=== PATIENT | male | born 1945 | race Caucasian/White ===

== ENCOUNTER → 2016-12-11 | Outpatient (CLI) | payer MEDICARE, BC | LOC: GMAB 10:37 | PROVIDERS: ATTEND Family Medicine | DX: I10 Essential (primary) hypertension (principal); E29.9 Testicular dysfunction, unspecified; Z12.5 Encounter for screening for malignant neoplasm of prostate | CPT/HCPCS: 84403; 84443; G0103 ==

== ENCOUNTER → 2016-12-18 | Outpatient (CLI) | payer MEDICARE, BC ==
--- NOTE | 2016-12-18 13:28 | RAD ---
EXAM DESCRIPTION: Hand,Right 3 Views CLINICAL HISTORY: PAIN COMPARISON: None. TECHNIQUE: Right hand 3 views FINDINGS: Degenerative changes are observed in the metacarpal phalangeal joint of the second digit. Mild distal interphalangeal joint arthritis is observed throughout the hand. Proximal interphalangeal joint arthritis is also observed in the third digit. Some degenerative changes are also observed in the proximal interphalangeal joint of the fifth digit. No fracturing is detected. IMPRESSION: Degenerative changes are observed. No fracturing is detected. Electronically signed by: Cesar Gomez MD 12/18/2016 1:26 PM CDT
== END | disposition home or self-care (01) ==
LOC: RAD 09:04
PROVIDERS: ATTEND Orthopaedic Surgery
DX: M79.641 Pain in right hand (principal)

== ENCOUNTER → 2017-05-08 | Outpatient (CLI) | payer MEDICARE, BC ==
--- NOTE | 2017-05-08 16:20 | US ---
PROCEDURE: Venous,Lower Extremity LT CLINICAL HISTORY and INDICATION: Left leg pain COMPARISON: None. TECHNIQUE: Mcgill scale imaging with duplex interrogation of the left lower extremity venous system was performed and multiple static images were obtained. FINDINGS: Utilizing compression and augmentation, there is no deep venous thrombus in the common femoral, superficial femoral or popliteal veins. The posterior tibial and deep peroneal veins are patent and compressible. . The greater saphenous vein at the saphenofemoral junction is patent and compressible. There is no visualization of any subcutaneous fluid collections. There is no visualization of any fluid collections in the left popliteal fossa. There is no evidence of reactive or pathological lymphadenopathy in the evaluated left lower extremity. IMPRESSION: No deep venous thrombosis of the left lower extremity. Location of Interpretation: [id number] Electronically signed by: Boone Brown MD 05/08/2017 4:19 PM [facility] Workstation: [id number]
== END ==
LOC: US 12:01
PROVIDERS: ATTEND Family Medicine
DX: M79.605 Pain in left leg (principal)

== ENCOUNTER 2018-02-09 14:42 | Emergency (ER) | payer MEDICARE, BC ==
[2018-02-09] MEDS ORDERED: ASPIRIN TABLET 325 MG TAB PO ONE (14:51)
[2018-02-09] MEDS ORDERED: TETANUS,DIPHTHERIA,PERTUSSIS 1 EA SYG IM ONE (14:57)
--- NOTE | 2018-02-09 15:24 | CT ---
PROCEDURE: Head HISTORY: head trauma Indication: Same as above Comparison: None Technique: CT of the head was done without intravenous contrast was done in the orthogonal planes. This exam was performed according to our departmental dose-optimization program, which includes automated exposure control, adjustment of the mA and/or KV according to the patient's size and/or use of iterative reconstruction technique. FINDINGS: There is no intracranial hemorrhage, midline shift mass effect or acute focal infarct. If clinical concern exists regarding an acute ischemic/vascular pathology being responsible for patient's symptomatology, an MRI of the brain is more sensitive than the current study, in ruling out such a possibility. There is good villanueva/white matter differentiation. The ventricular system is normal. The mastoid air cells are unremarkable . The paranasal sinuses are unremarkable . There is no visualization of acute fractures involving the calvarium or the skull base. IMPRESSION: There is no acute intracranial abnormality. Electronically signed by: Boone Brown MD 02/09/2018 3:23 PM [facility] Workstation: [id number]
--- NOTE | 2018-02-09 15:38 | ED.PDOC ---
History of Present Illness - General Chief Complaint: Laceration Stated Complaint: Laceration to top of head Time Seen by Provider: 02/09/18 14:44 Source: patient Exam Limitations: no limitations - History of Present Illness Initial Comments: The patient is a 73-year-old male presenting to the emergency room after having a wood skein spooler blow over in when and hit him on the head. He does have an abrasion over the crown of the scalp but no deep laceration. Estimated blood loss is probably 3 cc. It did make him dizzy and disoriented for a little bit. He does have a headache. No neck pain. No loss of consciousness. Timing/Duration: unsure Severity: moderate Improving Factors: nothing Worsening Factors: nothing Associated Symptoms: headaches Allergies/Adverse Reactions: Allergies Prednisone Allergy (Verified 02/02/16 07:33) Home Medications: Ambulatory Orders Cetirizine HCl [ZyrTEC] 20 mg PO DAILY 01/28/15 Losartan Potassium & Hydrochlo [Losartan Potassium/Hydroc 100-25 mg] 1 tab PO DAILY 01/28/15 Nebivolol HCl [Bystolic] 10 mg PO DAILY 02/09/18 Review of Systems - Review of Systems Constitutional: States: malaise EENTM: States: no symptoms reported Respiratory: States: no symptoms reported Cardiology: States: no symptoms reported Gastrointestinal/Abdominal: States: no symptoms reported Genitourinary: States: no symptoms reported Musculoskeletal: States: no symptoms reported Skin: States: no symptoms reported Neurological: States: headache Endocrine: States: no symptoms reported All other Systems: No Change from Baseline Past Medical History (General) - Patient Medical History Hx Stroke: No Hx Asthma: No - Seasonal allergies Hx Congestive Heart Failure: No Hx Hypertension: Yes Hx Diabetes: No Hx Gastroesophageal Reflux: Yes Hx Renal Disease: No - renal lethiasis Hx MRSA: No - Vaccination History Hx Tetanus, Diphtheria Vaccination: Yes Hx Influenza Vaccination: Yes - 2018 Hx Pneumococcal Vaccination: Yes - Social History Hx Tobacco Use: No Hx Alcohol Use: Yes - Female History Patient : No Family Medical History - Family History Father Family History: No Known Living Status: Physical Exam - Physical Exam General Appearance: Alert, Comfortable, No apparent distress Eye Exam: bilateral normal Ears, Nose, Throat: hearing grossly normal, normal ENT inspection Neck: non-tender, full range of motion, supple Respiratory: lungs clear, normal breath sounds, no respiratory distress, no accessory muscle use Cardiovascular/Chest: normal peripheral pulses, no edema, other - mild sinus bradycardia Peripheral Pulses: radial,right: 2+, radial,left: 2+, dorsalis pedis,right: 2+, dorsalis pedis,left: 2+ Gastrointestinal/Abdominal: soft Rectal Exam: deferred Back Exam: normal inspection Extremity: normal range of motion, no pedal edema, normal capillary refill Neurologic: cart pusher II-XII nml as tested, alert, normal mood/affect, oriented x 3 Skin Exam: normal color Comments: Vital Signs - 24 hr 02/09/18 14:45 Temperature 98.5 F Pulse Rate [ 56 L Right Radial] Respiratory 18 Rate Blood Pressure 164/84 [Right Arm] O2 Sat by Pulse 94 L Oximetry Progress - Progress Progress: 02/09/18 15:37 the patient is a 73-year-old male presenting secondary to trauma to the head. He does likely have a mild concussion. The abrasion to the scalp was cleaned with hydrogen peroxide. CT scan of the head showed no evidence of any acute trauma or intracranial hemorrhage. Motrin can be used for headache. Keep well-hydrated. ER warnings were given. Keep routine follow-up with primary care doctor. Departure - Departure Clinical Impression: Abrasion Concussion Qualifiers: Encounter type: initial encounter Loss of consciousness presence/duration: without LOC Qualified Code(s): S06.0X0A - Concussion without loss of consciousness, initial encounter Disposition: Discharge to Home or Self Care Condition: Fair Departure Forms: ED Discharge - Pt. Copy, Patient Portal Self Enrollment Instructions: DI for Laceration Repair -- Simple, Concussion, Adult (DC) Diet: regular diet Activity: increase activity as tolerated Referrals: Akhil Morgan MD [Primary Care Provider] - 1-2 Weeks Home Medications: Ambulatory Orders Cetirizine HCl [ZyrTEC] 20 mg PO DAILY 01/28/15 Losartan Potassium & Hydrochlo [Losartan Potassium/Hydroc 100-25 mg] 1 tab PO DAILY 01/28/15 Nebivolol HCl [Bystolic] 10 mg PO DAILY 02/09/18 Additional Instructions: the patient is a 73-year-old male presenting secondary to trauma to the head. He does likely have a mild concussion. The abrasion to the scalp was cleaned with hydrogen peroxide. CT scan of the head showed no evidence of any acute trauma or intracranial hemorrhage. Motrin can be used for headache. Keep well-hydrated. ER warnings were given. Keep routine follow-up with primary care doctor.
[2018-02-09 16:03] VITALS: BP 139/72; TEMP 98; O2SAT 97
== END 2018-02-09 14:45 | disposition home or self-care (01) ==
LOC: ER 14:42
DX: S06.0X0A Concussion without loss of consciousness, initial encounter (principal); S00.91XA Abrasion of unspecified part of head, initial encounter; I10 Essential (primary) hypertension; K21.9 Gastro-esophageal reflux disease without esophagitis; W20.8XXA Other cause of strike by thrown, projected or falling object, initial encounter; Z88.8 Allergy status to other drugs, medicaments and biological substances; Z23 Encounter for immunization

== ENCOUNTER → 2018-08-20 | Outpatient (CLI) | payer MEDICARE, BC | LOC: GMAJ 10:25 | PROVIDERS: ATTEND Family Medicine | DX: N40.1 Benign prostatic hyperplasia with lower urinary tract symptoms (principal); I10 Essential (primary) hypertension ==

== ENCOUNTER → 2020-02-20 | Outpatient (CLI) | payer MEDICARE, BC | LOC: GMAJ 10:38 | PROVIDERS: ATTEND Family Medicine | DX: Z12.5 Encounter for screening for malignant neoplasm of prostate (principal); I10 Essential (primary) hypertension ==

== ENCOUNTER → 2020-02-25 | Outpatient (CLI) | payer MEDICARE, BC ==
--- NOTE | 2020-02-26 07:34 | CT ---
EXAM DESCRIPTION: CT ABDOMEN AND PELVIS WITH CONTRAST CLINICAL HISTORY: LLQ PAIN COMPARISON: January 14, 2015 TECHNIQUE: CT of the abdomen and pelvis are performed during IV bolus administration of nonionic contrast. Oral contrast media was not administered. This exam was performed according to our departmental dose-optimization program, which includes automated exposure control, adjustment of the mA and/or kV according to patient size and/or use of iterative reconstruction technique. FINDINGS: Lung bases are clear with small retrocardiac hiatal hernia noted. Small normal liver without focal solid mass with surgical absence of the gallbladder without ductal dilation. Small subcentimeter subcapsular cyst anterior inferior right lobe of the liver requires no further evaluation. Normal spleen without focal lesion. Small normal adrenal glands and normal enhancement of the pancreas without focal mass or cyst or ductal dilation. Small second portion duodenal air-filled diverticulum adjacent to the pancreatic head Mildly tortuous aorta and normal appearing vena cava without retroperitoneal adenopathy. Cortical enhancement of each kidney without cyst or mass or obstruction or intrarenal calculus. No perinephric inflammatory changes. Normal caliber small and large bowel with extensive diverticulosis of the sigmoid colon and scattered diverticula in the remainder of the colon. Pericolic or mesenteric changes of acute diverticulitis is not localized. No phlegmon or abscess or perforation evident. No drainable fluid collection seen. Cecum and ileocecal valve are unremarkable with appendix not specifically identified but no right lower quadrant inflammatory changes. No abdominal or pelvic ascites or mesenteric masses. Partially distended bladder and normal-appearing seminal vesicles with modest prostatic hypertrophy. No pelvic cul-de-sac fluid. Normal inguinal regions without hernia or adenopathy. No pelvic sidewall or iliac mass. Intact anterior abdominal wall. Moderate levoscoliosis of the mid lumbar spine with degenerative disc changes L5-S1 and mild anterior wedging of the L1 vertebral body consistent with old indeterminate mild compression deformity. No acute fracture lines noted. IMPRESSION: 1. Extensive sigmoid colonic diverticulosis with scattered diverticula in the remainder of the colon without convincing evidence of acute diverticulitis. No fluid collections abscess or phlegmon noted in the left lower quadrant 2. Surgical absence of the gallbladder without ductal dilation. 3. Levoscoliosis lumbar spine with L5-S1 degenerative disc changes and mild old L1 compression deformity. 4. Small retrocardiac hiatal hernia. Electronically signed by: Khoa Dixon MD 02/26/2020 7:32 AM SAFETY ATTENDANT
== END ==
LOC: CT 08:14
PROVIDERS: ATTEND Family Medicine
DX: K57.30 Diverticulosis of large intestine without perforation or abscess without bleeding (principal); Z90.49 Acquired absence of other specified parts of digestive tract; K44.9 Diaphragmatic hernia without obstruction or gangrene; M41.86 Other forms of scoliosis, lumbar region